=== PATIENT | female | born 1960 | race Caucasian/White ===

== ENCOUNTER 2017-10-16 14:48 | Observation (INO) | payer SELFPAY ==
[~2017-10-16] VITALS: Ht 149.9 cm; Wt 50.0 kg
[~2017-10-16 14:48] MED LIST: CEPH250S PO
[2017-10-16 14:50] VITALS: BP 152/70; PULSE 92; RESP 16; TEMP 98.4; O2SAT 98
--- NOTE | 2017-10-16 15:36 | PD ---
HPI Chief Complaint: Chest Pain Time Seen by Provider: 15:18 Travel History International Travel<30 days: No Contact w/Intl Traveler<30days: No Traveled to known affect area: No History of Present Illness HPI 57-year-old female presents to the emergency Department with complaint of chest pain and abdominal pain for the past few days. Chest pain has been intermittent. Area of the chest is generalized. Reports associated shortness of breath. Denies wheezing. Reports thinking that it may be associated with a "viral illness" because of some nasal congestion and intermittent cough. Says she feels exhausted. Reports subjective fevers. Denies vomiting. Reports loose bowel movement this morning. Describes chest pain as burning, heavy pressure. Reports feeling gassy with burps. Says she "just has to burp constantly." Reports pain 5/10. No known aggravating factors. Took 2 aspirin while in the ER waiting room and says her chest pain got better for a few minutes. Denies tobacco use. Denies EtOH. Denies illicit drug use. Reports family history of PA with her mother age of 70. Primary care provider is Dr. Andrade. Denies significant past medical history. Allergies to Tavist and iodine. Has no other medical complaints. No other modifying factors or associated signs and symptoms. PFSH Past Medical History Arthritis: No Asthma: No Autoimmune Disease: No Blood Disorders: No Anxiety: No Depression: No Heart Rhythm Problems: No Cancer: No Cardiac Catheterization: No Cardiovascular Problems: No High Cholesterol: No Chemotherapy: No Chest Pain: No Congestive Heart Failure: No COPD: No Cerebrovascular Accident: No Diabetes: No Diminished Hearing: Yes (TINNITUS) Endocrine: No Gastrointestinal Disorders: Yes GERD: No Glaucoma: No Genitourinary: No Headaches: No Hepatitis: No Hiatal Hernia: No Hypertension: No Kidney Stones: No Musculoskeletal: No Neurologic: No Psychiatric: No Respiratory: No Myocardial Infarction: No Radiation Therapy: No Renal Failure: No Seizures: No Sickle Cell Disease: No Sleep Apnea: No Ulcer: No : 3 Para: 2 : 1 Past Surgical History Abdominal Surgery: No AICD: No Cardiac Surgery: No Coronary Artery Bypass Graft: No Ear Surgery: Yes Endocrine Surgery: No Eye Surgery: No Genitourinary Surgery: No Gynecologic Surgery: Yes (HYSTERECTOMY) Hysterectomy: Yes Oral Surgery: Yes Pacemaker: No Thoracic Surgery: No Tonsillectomy: Yes Tympanostomy Tube: Yes Other Surgery: Yes (SURESH EAR DRUM REPLACEMENTS) Family History Family Myocardial Infarction: Yes (MOTHER AT AGE 70) Social History Alcohol Use: No Tobacco Use: No Substance Use: No Allergies-Medications (Allergen,Severity, Reaction): Coded Allergies: clemastine (Unverified Allergy, Severe, 10/16/17) diatrizoate meglumine (Unverified Allergy, Severe, 10/16/17) gadobenic acid (Unverified Allergy, Severe, 10/16/17) gadodiamide (Unverified Allergy, Severe, 10/16/17) gadoteridol (Unverified Allergy, Severe, 10/16/17) iodine (Unverified Allergy, Severe, 10/16/17) iodixanol (Unverified Allergy, Severe, 10/16/17) iohexol (Unverified Allergy, Severe, 10/16/17) potassium iodide (Unverified Allergy, Severe, 10/16/17) povidone-iodine (Unverified Allergy, Severe, 10/16/17) sodium iodide (Unverified Allergy, Severe, 10/16/17) sodium iodide (Unverified Allergy, Severe, 10/16/17) MRI PRECAUTION (Unverified Adverse Reaction, Unknown, pt needs info on ear surgery before scan micheline sug ct 04/13, 10/16/17) Reported Meds & Prescriptions Reported Meds & Active Scripts Active No Active Prescriptions or Reported Medications Review of Systems Except as stated in HPI: all other systems reviewed are Neg Physical Exam Narrative GENERAL: Well-nourished, well-developed female patient, in no acute distress; afebrile; nontoxic appearing SKIN: Warm and dry. HEAD: Atraumatic. Normocephalic. EYES: Pupils equal and round. No scleral icterus. No injection or drainage. ENT: Mucosa pink and moist. Airway patent. NECK: Trachea midline. CHEST: Reproducible chest wall tenderness on palpation over the sternum and bilateral breast areas. CARDIOVASCULAR: Regular rate and rhythm. No murmur appreciated. RESPIRATORY: No accessory muscle use. Clear to auscultation. Breath sounds equal bilaterally. GASTROINTESTINAL: Abdomen soft, generalized abdominal tenderness on palpation; I cannot specify where abdominal pain on exam seems to be over exaggerated, nondistended. Hepatic and splenic margins not palpable. Bowel sounds are hyperactive 4 quadrants. Nonrigid. No guarding. BACK: No CVA tenderness. MUSCULOSKELETAL: No obvious deformities. No clubbing. No cyanosis. No edema. NEUROLOGICAL: Awake and alert. Oriented 3. No obvious cranial nerve deficits. Motor grossly within normal limits. Normal speech. PSYCHIATRIC: Appropriate mood and affect; insight and judgment normal. Data Data Last Documented VS Vital Signs Date Time Temp Pulse Resp B/P (MAP) Pulse Ox O2 Delivery O2 Flow Rate FiO2 10/16/17 17:23 100 Room Air 10/16/17 17:23 (97) 10/16/17 14:50 98.4 92 16 Orders Orders Electrocardiogram (10/16/17 15:36) Ckmb (Isoenzyme) Profile (10/16/17 15:36) Complete Blood Count With Diff (10/16/17 15:36) Comprehensive Metabolic Panel (10/16/17 15:36) Magnesium (Mg) (10/16/17 15:36) Prothrombin Time / Inr (Pt) (10/16/17 15:36) Act Partial Throm Time (Ptt) (10/16/17 15:36) Troponin I (10/16/17 15:36) Chest, Single Ap (10/16/17 15:36) Ecg Monitoring (10/16/17 15:36) Iv Access Insert/Monitor (10/16/17 15:36) Oximetry (10/16/17 15:36) Oxygen Administration (10/16/17 15:36) Sodium Chloride 0.9% Flush (Ns Flush) (10/16/17 15:45) Lipase (10/16/17 15:36) Urinalysis - C+S If Indicated (10/16/17 15:36) Oral Contrast - Adult (10/16/17 15:48) Ct Abd/Pel W/O Iv Contrast (10/16/17 15:52) Influenzae A/B Antigen (10/16/17 16:07) CKMB (10/16/17 15:30) CKMB% (10/16/17 15:30) Diatrizoate Liq ( Gastroview Liq) (10/16/17 16:59) Activity Bed Rest With Brp (10/16/17 17:42) Vital Signs (Adult) Q4H (10/16/17 17:42) Cardiac Rhythm .As Directed (10/16/17 17:42) Notify Dr: Other .PRN (10/16/17 17:42) Notify Parameters (10/16/17 17:42) Resp Oxygen Nasal Cannula (10/16/17 ) Diet Heart Healthy (10/16/17 Dinner) Electrocardiogram (10/16/17 17:42) ^ Obtain (10/16/17 17:42) [employer] Custodian / Telemetry CAIO.Q8H (10/16/17 17:42) Admit Order (Ed Use Only) (10/16/17 17:42) Labs Laboratory Tests Test 10/16/17 15:30 10/16/17 16:00 White Blood Count 8.0 TH/MM3 Red Blood Count 4.26 MIL/MM3 Hemoglobin 13.1 GM/DL Hematocrit 37.9 % Mean Corpuscular Volume 88.9 FL Mean Corpuscular Hemoglobin 30.7 PG Mean Corpuscular Hemoglobin Concent 34.6 % Red Cell Distribution Width 12.8 % Platelet Count 287 TH/MM3 Mean Platelet Volume 9.9 FL Neutrophils (%) (Auto) 66.2 % Lymphocytes (%) (Auto) 25.1 % Monocytes (%) (Auto) 7.0 % Eosinophils (%) (Auto) 0.8 % Basophils (%) (Auto) 0.9 % Neutrophils # (Auto) 5.3 TH/MM3 Lymphocytes # (Auto) 2.0 TH/MM3 Monocytes # (Auto) 0.6 TH/MM3 Eosinophils # (Auto) 0.1 TH/MM3 Basophils # (Auto) 0.1 TH/MM3 CBC Comment DIFF FINAL Differential Comment Prothrombin Time 10.7 SEC Prothromb Time International Ratio 1.0 RATIO Activated Partial Thromboplast Time 27.1 SEC Blood Urea Nitrogen 12 MG/DL Creatinine 0.64 MG/DL Random Glucose 95 MG/DL Total Protein 8.5 GM/DL Albumin 4.2 GM/DL Calcium Level 9.5 MG/DL Magnesium Level 2.2 MG/DL Alkaline Phosphatase 89 U/L Aspartate Amino Transf (AST/SGOT) 21 U/L Alanine Aminotransferase (ALT/SGPT) 33 U/L Total Bilirubin 0.3 MG/DL Sodium Level 137 MEQ/L Potassium Level 3.8 MEQ/L Chloride Level 102 MEQ/L Carbon Dioxide Level 29.2 MEQ/L Anion Gap 6 MEQ/L Estimat Glomerular Filtration Rate 95 ML/MIN Total Creatine Kinase 119 U/L Creatine Kinase MB 1.3 NG/ML Troponin I LESS THAN 0.02 NG/ML Lipase 174 U/L Urine Color LIGHT-YELLOW Urine Turbidity CLEAR Urine pH 6.5 Urine Specific [place] 1.007 Urine Protein NEG mg/dL Urine Glucose (UA) NEG mg/dL Urine Ketones NEG mg/dL Urine Occult Blood NEG Urine Nitrite NEG Urine Bilirubin NEG Urine Urobilinogen LESS THAN 2.0 MG/DL Urine Leukocyte Esterase NEG Urine WBC LESS THAN 1 /hpf Urine Squamous Epithelial Cells 1 /hpf Urine Bacteria RARE /hpf Microscopic Urinalysis Comment CULT NOT INDICATED MDM Medical Decision Making Medical Screen Exam Complete: Yes Emergency Medical Condition: Yes Medical Record Reviewed: Yes Differential Diagnosis GERD, gastritis, PUD, PA, ACS, pneumonia, influenza Narrative Course 57-year-old female with chest pain and generalized abdominal pain. 1737: CBC unremarkable. Coags unremarkable. CMP unremarkable. Troponin less than 0.02. CK-MB 1.3. Lipase 174. Urinalysis without signs of infection. Chest x-ray and CT abdomen/pelvis concludes: Abdomen/Pelvis CT 10/16/17 1552 Signed Impressions: Service Date/Time: Monday, October 16, 2017 16:07 - CONCLUSION: 1. No acute abnormality to explain the patient's pain. Caesar De Leon Jr., MD Chest X-Ray 10/16/17 1536 Signed Impressions: Service Date/Time: Monday, October 16, 2017 16:44 - CONCLUSION: Normal examination. Matthew Harman MD Lab and radiology findings discussed with the patient. Discussed the patient with Dr. Hanley and he agrees with admission to the chest pain center. Patient will be admitted to [facility] for further treatment and evaluation. Physician Communication Physician Communication [facility] Diagnosis Primary Impression: Chest pain Qualified Codes: R07.9 - Chest pain, unspecified Additional Impression: Abdominal pain Qualified Codes: R10.9 - Unspecified abdominal pain Admitting Information Admitting Physician Requests: Observation Scripts No Active Prescriptions or Reported Meds Kiki Mcduffie Oct 16, 2017 15:35
[2017-10-16] MEDS ORDERED: SODIUM CHLORIDE 0.9% FLUSH 10 ML FLUSH IVF PRN (15:45)
[2017-10-16 16:18] LABS: AUTOMATED NEUTROPHIL # 5.3 TH/MM3 (1.8-7.7); BASOPHIL # 0.1 TH/MM3 (0-0.2); BASOPHIL % 0.9 % (0.0-2.0); EOSINOPHIL # 0.1 TH/MM3 (0-0.4); EOSINOPHIL % 0.8 % (0.0-4.0); HEMATOCRIT 37.9 % (35.0-46.0); HEMO FLAGS DIFF FINAL; LYMPH % 25.1 % (9.0-44.0); MEAN CELL VOLUME 88.9 FL (80.0-100.0); MEAN CORPUSCULAR HEMOGLOBIN 30.7 PG (27.0-34.0); MEAN CORPUSCULAR HGB CONC 34.6 % (32.0-36.0); NEUT % 66.2 % (16.0-70.0); PLATELET COUNT 287 TH/MM3 (150-450); RED BLOOD COUNT 4.26 MIL/MM3 (4.00-5.30); RED CELL DISTRIBUTION WIDTH 12.8 % (11.6-17.2)
--- NOTE | 2017-10-16 16:19 | RADRPT ---
EXAM DATE/TIME: 10/16/2017 16:07 [facility] COMPARISON: No previous studies available for comparison. INDICATIONS : Abdomen pain. ORAL CONTRAST: No oral contrast ingested. RADIATION DOSE: 4.54 CTDIvol (mGy) MEDICAL HISTORY : None SURGICAL HISTORY : Hysterectomy. ENCOUNTER: Initial ACUITY: 1 day PAIN SCALE: 5/10 LOCATION: Bilateral abdomen. TECHNIQUE: Volumetric scanning of the abdomen and pelvis was performed. Using automated exposure control and ad justment of the mA and/or kV according to patient size, radiation dose was kept as low as reasonably achievable to obtain optimal diagnostic quality images. DICOM format image data is available electro nically for review and comparison. FINDINGS: LOWER LUNGS: The visualized lower lungs are clear. LIVER: Homogeneous density without lesion. There is no dilation of the biliary tree. No calcified gallston es. SPLEEN: Normal size without lesion. PANCREAS: Within normal limits. KIDNEYS: Normal in size and shape. There is no mass, stone, or hydronephrosis. ADRENAL GLANDS: Within normal limits. VASCULAR: There is no aortic aneurysm. BOWEL/MESENTERY: The stomach, small bowel, and colon demonstrate no acute abnormality. There is no free intraperitone al air or fluid. ABDOMINAL WALL: Within normal limits. RETROPERITONEUM: There is no lymphadenopathy. BLADDER: No wall thickening or mass. REPRODUCTIVE: Within normal limits. INGUINAL: There is no lymphadenopathy or hernia. MUSCULOSKELETAL: Within normal limits for patient age. CONCLUSION: 1. No acute abnormality to explain the patient's pain. Caesar De Leon Jr., MD on October 16, 2017 at 16:12 Board Certified Radiologist. This report was verified electronically.
[2017-10-16 16:23] LABS: BACTERIA, URINE RARE /hpf; BLOOD, URINE NEG (NEG); COMMENT (UR) CULT NOT INDICATED; CULTURE IF INDICATED CULT NOT INDICATED; GLUCOSE,URINE NEG (NEG); KETONE, URINE NEG (NEG); NITRITE,URINE NEG (NEG); PH, URINE 6.5 (5.0-8.5); SQUAMOUS EPITHELIAL CELL URINE 1 /hpf (0-5); URINE COLOR LIGHT-YELLOW (YELLW/STRAW)
[2017-10-16 16:31] LABS: APTT (PATIENT) 27.1 SEC (24.3-30.1); PROTHROMBIN TIME - PATIENT 10.7 SEC (9.8-11.6)
[2017-10-16 16:48] LABS: ALT (GPT) 33 U/L (10-53); ANION GAP 6 MEQ/L (5-15); AST (GOT) 21 U/L (15-37); BICARBONATE 29.2 MEQ/L (21.0-32.0); BLOOD UREA NITROGEN 12 MG/DL (7-18); CHLORIDE 102 MEQ/L (98-107); GLOMERULAR FILTRATION RATE 95 ML/MIN (>89); MAGNESIUM 2.2 MG/DL (1.5-2.5); POTASSIUM 3.8 MEQ/L (3.5-5.1); SODIUM (NA) 137 MEQ/L (136-145)
[2017-10-16 16:52] LABS: ALKALINE PHOSPHATASE 89 U/L (45-117); CREATINE KINASE 119 U/L (26-192); TOTAL BILIRUBIN ADULT 0.3 MG/DL (0.2-1.0)
[2017-10-16] MEDS ORDERED: DIATRIZOATE MEGLUM/DIATRIZOATE SOD 9 ML CUP ONE (16:59)
[2017-10-16 17:04] LABS: CKMB 1.3 NG/ML (0.5-3.6)
--- NOTE | 2017-10-16 17:10 | RADRPT ---
EXAM DATE/TIME: 10/16/2017 16:44 [facility] COMPARISON: No previous studies available for comparison. INDICATIONS : Chest pain. MEDICAL HISTORY : None. SURGICAL HISTORY : Hysterectomy. ENCOUNTER: Initial ACUITY: 1 day PAIN SCORE: 6/10 LOCATION: Left upper chest FINDINGS: A single view of the chest demonstrates the lungs to be symmetrically aerated without evidence of mas s, infiltrate or effusion. The cardiomediastinal contours are unremarkable. Osseous structures are intact. CONCLUSION: Normal examination. Matthew Harman MD on October 16, 2017 at 17:08 Board Certified Radiologist. This report was verified electronically.
[2017-10-16] MEDS ORDERED: ONDANSETRON HCL 4 MG/2 ML VIAL IV PUSH PRN (18:30)
[2017-10-16] MEDS ORDERED: NITROGLYCERIN 0.4 MG SL 25 TABS/BTL SL PRN (18:30)
[2017-10-16] MEDS ORDERED: SODIUM CHLORIDE 0.9% FLUSH 10 ML FLUSH IV FLUSH PRN (18:30)
[2017-10-16] MEDS ORDERED: ACETAMINOPHEN 500 MG CPLT PO PRN (18:30)
--- NOTE | 2017-10-16 18:31 | HHI.HP ---
HPI Primary Care Physician Luc Lundberg MD Chief Complaint Chest pain History of Present Illness 57-year-old female with no significant past medical history presents to emergency room for further evaluation of chest pain and abdominal pain. Patient vague regarding symptoms and difficult to obtain accuracy of symptoms. Reports onset of chest pain began may be Thursday or Thursday, or "maybe even last week." Location generalized chest area pointing to left right and substernal areas. Characterized as heavy, tight, and burning. Unable to discern if pain comes on quickly or gradual. Occasionally radiates to mid back. Unsure of duration of symptoms. Denies similar pain in the past. No known precipitating or relieving factors. Denies any recent illness. Endorses a "slight cough and nasal congestion." Endorses she was mother and the ER today. Mother has been admitted for pneumonia. After mother was admitted, she then came to the ER herself. In regards to her abdominal discomfort, endorses frequent belching and passing flatus. This is not a new problem, states her PCP has worked up for belching and abdominal distension however cause unknown. Review of Systems General: No fatigue,weakness, fever, chills, or recent illness. Has been her general state of health other than his stated above. HEENT: Current nasal congestion, no nasal drainage, no dysphasia CV: Continues to have chest pain as stated above. RESP: No SOB. "Slight cough" reportedly been nonproductive. No wheeze. GI: No nausea, vomiting, or bowel changes. Frequent belching and passing gas. No change in appetite, no unintentional weight gain or weight loss : No dysuria EXT: Recent trace lower extremity edema MS: No discomfort or change in ROM NEURO: No difficulty with balance, LOC, motor/sensory deficits PSYCH: No anxiety, depression, or situational stress. Denies situational stress regarding mother's recent hospitalization. SKIN: No rashes, no concerning lesions Past Family Social History Allergies: Coded Allergies: clemastine (Unverified Allergy, Severe, 10/16/17) diatrizoate meglumine (Unverified Allergy, Severe, 10/16/17) gadobenic acid (Unverified Allergy, Severe, 10/16/17) gadodiamide (Unverified Allergy, Severe, 10/16/17) gadoteridol (Unverified Allergy, Severe, 10/16/17) iodine (Unverified Allergy, Severe, 10/16/17) iodixanol (Unverified Allergy, Severe, 10/16/17) iohexol (Unverified Allergy, Severe, 10/16/17) potassium iodide (Unverified Allergy, Severe, 10/16/17) povidone-iodine (Unverified Allergy, Severe, 10/16/17) sodium iodide (Unverified Allergy, Severe, 10/16/17) sodium iodide (Unverified Allergy, Severe, 10/16/17) MRI PRECAUTION (Unverified Adverse Reaction, Unknown, pt needs info on ear surgery before scan shifrn sug ct 04/13, 10/16/17) Past Medical History Hypothyroidism Reported Medications Reported Meds & Active Scripts Active No Active Prescriptions or Reported Medications States she was prescribed levothyroxine few months ago never started. Stating she does not like to take medication. Active Ordered Medications Current Medications Medications (Trade) Dose Ordered Sig/Eli Route Start Time Stop Time Status Last Admin (NS Flush) 2 ml UNSCH PRN IVF 10/16/17 15:45 Family History Noncontributory for early onset cardiovascular disease. Social History No known diabetes, hypertension, coronary artery disease, or lipidemia. Number smoker, quit in her early 20s. Denies any alcohol or illegal drug use. . Endorses an active lifestyle. Past cardiac testing Cardiac catheterization 5 years ago performed by Dr. Alfred reported to being "lately normal." No recent stress testing. Physical Exam Vital Signs Vital Signs Date Time Temp Pulse Resp B/P (MAP) Pulse Ox O2 Delivery O2 Flow Rate FiO2 10/16/17 17:23 100 Room Air 10/16/17 17:23 (97) Room Air 10/16/17 14:50 98.4 92 16 152/70 (97) 98 Physical Exam GENERAL: Alert WN, WD, NAD, anxious, female HEAD: NC, AT EYES: Sclera clear, conjunctiva without injection, pupils equal and round ENT: Mucous membranes pink and moist CV: RRR, without murmur, rub, gallop, no JVD, S1-S2 no S3-S4. Generalized Chest wall pain easily reproduced with palpation. RESP: Clear lungs throughout bilateral, no crackles, wheeze, rhonchi, symmetrical chest rise, nonlabored, able to speak in full sentences ABD: Soft, NT, ND, no masses, positive bowel tones BACK: No CVAT. Midback pain reproduced palpation. EXT: Pulses +24, trace lower extremity dependent edema MS: Normal tone 4 extremities, no obvious deformities, full range of motion NEURO: CN II through CN XII grossly intact, motor strength 5/5 PSYCH: A+O 3, anxious,appropriate speech, questionable insight and judgment SKIN: Normal turgor, normal texture, no lesions, no rashes Laboratory Laboratory Tests Test 10/16/17 15:30 10/16/17 16:00 White Blood Count 8.0 Red Blood Count 4.26 Hemoglobin 13.1 Hematocrit 37.9 Mean Corpuscular Volume 88.9 Mean Corpuscular Hemoglobin 30.7 Mean Corpuscular Hemoglobin Concent 34.6 Red Cell Distribution Width 12.8 Platelet Count 287 Mean Platelet Volume 9.9 Neutrophils (%) (Auto) 66.2 Lymphocytes (%) (Auto) 25.1 Monocytes (%) (Auto) 7.0 Eosinophils (%) (Auto) 0.8 Basophils (%) (Auto) 0.9 Neutrophils # (Auto) 5.3 Lymphocytes # (Auto) 2.0 Monocytes # (Auto) 0.6 Eosinophils # (Auto) 0.1 Basophils # (Auto) 0.1 CBC Comment DIFF FINAL Differential Comment Prothrombin Time 10.7 Prothromb Time International Ratio 1.0 Activated Partial Thromboplast Time 27.1 Blood Urea Nitrogen 12 Creatinine 0.64 Random Glucose 95 Total Protein 8.5 Albumin 4.2 Calcium Level 9.5 Magnesium Level 2.2 Alkaline Phosphatase 89 Aspartate Amino Transf (AST/SGOT) 21 Alanine Aminotransferase (ALT/SGPT) 33 Total Bilirubin 0.3 Sodium Level 137 Potassium Level 3.8 Chloride Level 102 Carbon Dioxide Level 29.2 Anion Gap 6 Estimat Glomerular Filtration Rate 95 Total Creatine Kinase 119 Creatine Kinase MB 1.3 Troponin I LESS THAN 0.02 Lipase 174 Urine Color LIGHT-YELLOW Urine Turbidity CLEAR Urine pH 6.5 Urine Specific [place] 1.007 Urine Protein NEG Urine Glucose (UA) NEG Urine Ketones NEG Urine Occult Blood NEG Urine Nitrite NEG Urine Bilirubin NEG Urine Urobilinogen LESS THAN 2.0 Urine Leukocyte Esterase NEG Urine WBC LESS THAN 1 Urine Squamous Epithelial Cells 1 Urine Bacteria RARE Microscopic Urinalysis Comment CULT NOT INDICATED Result Diagram: 10/16/17 1530 10/16/17 1530 Imaging Last Impressions Abdomen/Pelvis CT 10/16/17 1552 Signed Impressions: Service Date/Time: Monday, October 16, 2017 16:07 - CONCLUSION: 1. No acute abnormality to explain the patient's pain. Caesar De Leon Jr., MD Chest X-Ray 10/16/17 1536 Signed Impressions: Service Date/Time: Monday, October 16, 2017 16:44 - CONCLUSION: Normal examination. Matthew Harman MD Course EKG Sinus rhythm, normal axis and no ST or T-segment changes Caprini VTE Risk Assessment Caprini VTE Risk Assessment: No/Low Risk (score <= 1) Caprini Risk Assessment Model Point Value = 1 Point Value = 2 Point Value = 3 Point Value = 5 Age 41-60 Minor surgery BMI > 25 kg/m2 Swollen legs Varicose veins or History of unexplained or recurrent spontaneous Oral contraceptives or hormone replacement Sepsis (< 1 month) Serious lung disease, including pneumonia (< 1 month) Abnormal pulmonary function Acute myocardial infarction Congestive heart failure (< 1 month) History of inflammatory bowel disease Medical patient at bed rest Age 61-74 Arthroscopic surgery Major open surgery (> 45 min) Laparoscopic surgery (> 45 min) Malignancy Confined to bed (> 72 hours) Immobilizing plaster cast Central venous access Age >= 75 History of VTE Family history of VTE Factor V Leiden Prothrombin [id number] Lupus anticoagulant Anticardiolipin antibodies Elevated serum homocysteine Heparin-induced thrombocytopenia Other congenital or acquired thrombophilia Stroke (< 1 month) Elective arthroplasty Hip, pelvis, or leg fracture Acute spinal cord injury (< 1 month) Prophylaxis Regimen Total Risk Factor Score Risk Level Prophylaxis Regimen 0-1 Low Early ambulation 2 Moderate Order ONE of the following: *Sequential Compression Device (SCD) *Heparin 5000 units SQ BID 3-4 Higher Order ONE of the following medications: *Heparin 5000 units SQ TID *Enoxaparin/Lovenox 40 mg SQ daily (WT < 150 kg, CrCl > 30 mL/min) *Enoxaparin/Lovenox 30 mg SQ daily (WT < 150 kg, CrCl > 10-29 mL/min) *Enoxaparin/Lovenox 30 mg SQ BID (WT < 150 kg, CrCl > 30 mL/min) AND/OR *Sequential Compression Device (SCD) 5 or more Highest Order ONE of the following medications: *Heparin 5000 units SQ TID (Preferred with Epidurals) *Enoxaparin/Lovenox 40 mg SQ daily (WT < 150 kg, CrCl > 30 mL/min) *Enoxaparin/Lovenox 30 mg SQ daily (WT < 150 kg, CrCl > 10-29 mL/min) *Enoxaparin/Lovenox 30 mg SQ BID (WT < 150 kg, CrCl > 30 mL/min) AND *Sequential Compression Device (SCD) Assessment and Plan Assessment and Plan #1 Atypical chest pain-admitted chest pain center. Ruled out with 3 sets of EKGs, cardiac enzymes, monitor overnight. Will be evaluated by Ricco Stoll in a.m. Discussed likelihood possible stress test however due to normal cardiac catheterization 5 years ago stress test may not be indicated. This will be determined by real estate utilization officer. Both patient and agreeable to plan of care. #2 Musculoskeletal pain-Toradol 30 mg IV 1 dose #3 Abdominal discomfort-no acute findings on exam or imaging. Reassurance given. Protonix 40 mg QD. Follow-up with PCP upon discharge. Griselda Virgen Oct 16, 2017 18:31
[2017-10-16] MEDS ORDERED: CALCIUM CARBONATE 500 MG CHEWABLE TAB CHEW PRN (18:45)
[2017-10-16] MEDS ORDERED: KETOROLAC TROMETHAMINE 30 MG/ML (IVP) VIAL IV PUSH ONE (19:15)
[2017-10-16 19:24] LABS: CREATINE KINASE 108 U/L (26-192)
[2017-10-16 19:35] VITALS: O2SAT 96
[2017-10-16 19:59] VITALS: BP 126/69; PULSE 87; RESP 18; TEMP 97.8; O2SAT 98
[2017-10-16] MEDS: SODIUM CHLORIDE 0.9% FLUSH 10 ML FLUSH IV FLUSH SCH (20:14)
[2017-10-16] MEDS: PANTOPRAZOLE SOD 40 MG DELAYED RELEASE TAB PO SCH (20:14)
[2017-10-16 23:35] VITALS: BP 104/58; PULSE 72; RESP 18; TEMP 98; O2SAT 97
[2017-10-16 23:45] LABS: CREATINE KINASE 96 U/L (26-192)
[2017-10-17 05:04] VITALS: BP 101/57; PULSE 61; RESP 18; TEMP 98.4; O2SAT 97
[2017-10-17 07:14] VITALS: BP 99/57; PULSE 66; RESP 18; TEMP 95.8; O2SAT 97
[2017-10-17] MEDS ORDERED: ASPIRIN 325 MG TAB PO SCH (09:00)
[2017-10-17] MEDS: SODIUM CHLORIDE 0.9% FLUSH 10 ML FLUSH IV FLUSH SCH (09:00)
--- NOTE | 2017-10-17 09:42 | HHI.DCPOC ---
Discharge Care Plan Diagnosis: (1) Chest pain (2) Abdominal pain Goals to Promote Your Health * To prevent worsening of your condition and complications * To maintain your health at the optimal level Directions to Meet Your Goals Take your medications as prescribed Follow your dietary instruction Follow activity as directed Keep your appointments as scheduled Take your immunizations and boosters as scheduled If your symptoms worsen call your PCP, if no PCP go to Urgent Care Center or Emergency Room Smoking is Dangerous to Your Health. Avoid second hand smoke Call the 24-hour hour crisis hotline for domestic abuse at [facility] Oct 17, 2017 09:41
--- NOTE | 2017-10-17 09:49 | PD.CARD.PN ---
Subjective Subjective Remarks Pt seen and evaluated with PA. She has ongoing outpatient evaluation for abdominal issues and pain with Dr. Cha. Yesterday this seemed to precipitate the discomfort in her chest which lasted off an on for several hours. She has RO for ACS now and options for ETT or MIKO are considered. Her resting EKG is abn so ETT less appropriate. In the past she had a nuclear stress and a very bad reaction to it. She had a negative CAT"H in 2011 and no acute markers to suggest acute problem now. She strongly declined a nuclear evaluation and does have good OP follow up locally. As a result we will respect her request and discharge her to further OP evaluation by Dr. Cha. Objective Medications Current Medications Medications (Trade) Dose Ordered Sig/Eli Route Start Time Stop Time Status Last Admin (NS Flush) 2 ml UNSCH PRN IVF 10/16/17 15:45 (NS Flush) 2 ml UNSCH PRN IV FLUSH 10/16/17 18:30 (NS Flush) 2 ml BID IV FLUSH 10/16/17 21:00 10/16/17 20:14 (Tylenol) 500 mg Q4H PRN PO 10/16/17 18:30 (Zofran Inj) 4 mg Q6H PRN IV PUSH 10/16/17 18:30 (Nitrostat Sl) 0.4 mg Q5M PRN SL 10/16/17 18:30 (Aspirin) 325 mg DAILY PO 10/17/17 09:00 (Protonix) 40 mg DAILY PO 10/16/17 18:45 10/16/17 20:14 (Tums Chew) 500 mg Q2H PRN CHEW 10/16/17 18:45 Vital Signs / I&O Vital Signs Date Time Temp Pulse Resp B/P (MAP) Pulse Ox O2 Delivery O2 Flow Rate FiO2 10/17/17 07:14 95.8 66 18 99/57 (71) 97 10/17/17 05:04 98.4 61 18 101/57 (72) 97 10/16/17 23:35 98.0 72 18 104/58 (73) 97 10/16/17 19:59 97.8 87 18 126/69 (88) 98 10/16/17 19:35 96 10/16/17 19:04 10/16/17 17:23 100 Room Air 10/16/17 17:23 (97) Room Air 10/16/17 14:50 98.4 92 16 152/70 (97) 98 Physical Exam WNWD in no acute distress Neck without JVD, MN or bruit Chest clear with good BS CV RSR without GRM Abd diffusely tender, hyperactive BS, but no guarding or rebound. No masses Ext without CCE Laboratory Laboratory Tests Test 10/16/17 15:30 10/16/17 16:00 10/16/17 18:50 10/16/17 23:00 White Blood Count 8.0 TH/MM3 Red Blood Count 4.26 MIL/MM3 Hemoglobin 13.1 GM/DL Hematocrit 37.9 % Mean Corpuscular Volume 88.9 FL Mean Corpuscular Hemoglobin 30.7 PG Mean Corpuscular Hemoglobin Concent 34.6 % Red Cell Distribution Width 12.8 % Platelet Count 287 TH/MM3 Mean Platelet Volume 9.9 FL Neutrophils (%) (Auto) 66.2 % Lymphocytes (%) (Auto) 25.1 % Monocytes (%) (Auto) 7.0 % Eosinophils (%) (Auto) 0.8 % Basophils (%) (Auto) 0.9 % Neutrophils # (Auto) 5.3 TH/MM3 Lymphocytes # (Auto) 2.0 TH/MM3 Monocytes # (Auto) 0.6 TH/MM3 Eosinophils # (Auto) 0.1 TH/MM3 Basophils # (Auto) 0.1 TH/MM3 CBC Comment DIFF FINAL Differential Comment Prothrombin Time 10.7 SEC Prothromb Time International Ratio 1.0 RATIO Activated Partial Thromboplast Time 27.1 SEC Blood Urea Nitrogen 12 MG/DL Creatinine 0.64 MG/DL Random Glucose 95 MG/DL Total Protein 8.5 GM/DL Albumin 4.2 GM/DL Calcium Level 9.5 MG/DL Magnesium Level 2.2 MG/DL Alkaline Phosphatase 89 U/L Aspartate Amino Transf (AST/SGOT) 21 U/L Alanine Aminotransferase (ALT/SGPT) 33 U/L Total Bilirubin 0.3 MG/DL Sodium Level 137 MEQ/L Potassium Level 3.8 MEQ/L Chloride Level 102 MEQ/L Carbon Dioxide Level 29.2 MEQ/L Anion Gap 6 MEQ/L Estimat Glomerular Filtration Rate 95 ML/MIN Total Creatine Kinase 119 U/L 108 U/L 96 U/L Creatine Kinase MB 1.3 NG/ML 1.0 NG/ML Troponin I LESS THAN 0.02 NG/ML LESS THAN 0.02 NG/ML LESS THAN 0.02 NG/ML Lipase 174 U/L Urine Color LIGHT-YELLOW Urine Turbidity CLEAR Urine pH 6.5 Urine Specific [place] 1.007 Urine Protein NEG mg/dL Urine Glucose (UA) NEG mg/dL Urine Ketones NEG mg/dL Urine Occult Blood NEG Urine Nitrite NEG Urine Bilirubin NEG Urine Urobilinogen LESS THAN 2.0 MG/DL Urine Leukocyte Esterase NEG Urine WBC LESS THAN 1 /hpf Urine Squamous Epithelial Cells 1 /hpf Urine Bacteria RARE /hpf Microscopic Urinalysis Comment CULT NOT INDICATED Imaging Last 24 hours Impressions Abdomen/Pelvis CT 10/16/17 1552 Signed Impressions: Service Date/Time: Monday, October 16, 2017 16:07 - CONCLUSION: 1. No acute abnormality to explain the patient's pain. Caesar De Leon Jr., MD Chest X-Ray 10/16/17 1536 Signed Impressions: Service Date/Time: Monday, October 16, 2017 16:44 - CONCLUSION: Normal examination. Matthew Harman MD Assessment and Plan Assessment and Plan She has RO for ACS and declines nuclear stress testing. In view of her negative CATH, current atypical symptoms, and negative enzymes she is at relatively low risk to discharge and F"U as OP with her PCP who knows her well. Discussed Condition With This plan was discussed with the patient while PA present in the room. Ricco Stoll MD Oct 17, 2017 09:49
[2017-10-17] MEDS: PANTOPRAZOLE SOD 40 MG DELAYED RELEASE TAB PO SCH (09:52)
--- NOTE | 2017-10-17 14:36 | EKG ---
Date Performed: 10/16/2017 Time Performed: 22:30:13 PTAGE: 57 years EKG: Sinus rhythm ST DEVIATION AND MODERATE T-WAVE ABNORMALITY, CONSIDER LATERAL ISCHEMIA ABNORMAL ECG NO SIG CHANGE PREVIOUS TRACING : 10/16/2017 18.43 DOCTOR: Ricco Stoll Interpretating Date/Time 10/17/2017 14:35:17
--- NOTE | 2017-10-17 15:10 | EKG ---
Date Performed: 10/16/2017 Time Performed: 18:43:01 PTAGE: 57 years EKG: Sinus rhythm NONSPECIFIC ST & T-WAVE ABNORMALITY BORDERLINE ECG PREVIOUS TRACING : 10/16/2017 15.26 Compared to prior tracing no significant change DOCTOR: Tenzin Olivarez Interpretating Date/Time 10/20/2017 06:51:35
--- NOTE | 2017-10-17 15:26 | EKG ---
Date Performed: 10/16/2017 Time Performed: 15:26:07 PTAGE: 57 years EKG: Sinus rhythm POSSIBLE LEFT ATRIAL ENLARGEMENT LOW QRS VOLTAGE IN PRECORDIAL LEADS NONSPECIFIC ST & T-WAVE ABNORMA LITY BORDERLINE ECG PREVIOUS TRACING : 04/23/2012 10.55 Compared to prior tracing no significant change DOCTOR: Tenzin Olivarez Interpretating Date/Time 10/17/2017 15:25:41
== END 2017-10-17 10:35 | disposition home or self-care (01) ==
LOC: NEPE 14:48 → NEDA 17:46 → NEPGCP 19:04
PROVIDERS: ADMIT Internal Medicine Interventional Cardiology; ATTEND Internal Medicine Interventional Cardiology
DX: R07.9 Chest pain, unspecified (principal); R10.9 Unspecified abdominal pain; R06.02 Shortness of breath; R94.31 Abnormal electrocardiogram [ECG] [EKG]; E03.9 Hypothyroidism, unspecified; Z87.891 Personal history of nicotine dependence
CPT/HCPCS: 71010; 74176; 80053; 81001; 82550; 82552; 83690; 83735; 84484; 85025; 85610; 85730; 93005; 96374; 96376; 99285; G0378; J1885; Q9963

== ENCOUNTER 2018-01-05 11:45 | Emergency (ER) | payer SELFPAY ==
[2018-01-05 11:49] VITALS: BP 145/72; PULSE 90; RESP 18; TEMP 98.2; O2SAT 99
[2018-01-05 12:31] LABS: AUTOMATED NEUTROPHIL # 5.1 TH/MM3 (1.8-7.7); BASOPHIL # 0.1 TH/MM3 (0-0.2); BASOPHIL % 0.8 % (0.0-2.0); EOSINOPHIL # 0.1 TH/MM3 (0-0.4); EOSINOPHIL % 1.3 % (0.0-4.0); HEMATOCRIT 37.5 % (35.0-46.0); LYMPH % 24.3 % (9.0-44.0); LYMPHOCYTE # 1.8 TH/MM3 (1.0-4.8); MEAN CELL VOLUME 88.9 FL (80.0-100.0); MEAN CORPUSCULAR HEMOGLOBIN 30.7 PG (27.0-34.0); MEAN CORPUSCULAR HGB CONC 34.6 % (32.0-36.0); MEAN PLATELET VOLUME 9.5 FL (7.0-11.0); MONO % 6.6 % (0.0-8.0); MONOCYTE # 0.5 TH/MM3 (0-0.9); PLATELET COUNT 274 TH/MM3 (150-450); RED BLOOD COUNT 4.22 MIL/MM3 (4.00-5.30); RED CELL DISTRIBUTION WIDTH 12.6 % (11.6-17.2); WHITE BLOOD COUNT 7.6 TH/MM3 (4.0-11.0)
[2018-01-05 12:38] LABS: PROTHROMBIN TIME - PATIENT 10.6 SEC (9.8-11.6)
--- NOTE | 2018-01-05 12:54 | RADRPT ---
EXAM DATE/TIME: 01/05/2018 12:38 [facility] COMPARISON: No previous studies available for comparison. INDICATIONS : Stabbing chest pain today, fatigue, weakness MEDICAL HISTORY : chest pain off and on since Sep 2017 SURGICAL HISTORY : Hysterectomy. ENCOUNTER: Initial ACUITY: 1 day PAIN SCORE: 10/10 LOCATION: Bilateral chest FINDINGS: PA and lateral views of the chest demonstrate the lungs to be symmetrically aerated without evidence of mass, infiltrate or effusion. The cardiomediastinal contours are unremarkable. Osseous structure s are intact. CONCLUSION: No acute disease. Caesar De Leon Jr., MD on January 05, 2018 at 12:51 Board Certified Radiologist. This report was verified electronically.
[2018-01-05 13:12] LABS: BICARBONATE 28.8 MEQ/L (21.0-32.0); BLOOD UREA NITROGEN 12 MG/DL (7-18); CALCIUM 9.1 MG/DL (8.5-10.1); CHLORIDE 105 MEQ/L (98-107); CREATININE 0.64 MG/DL (0.50-1.00); GLOMERULAR FILTRATION RATE 95 ML/MIN (>89); GLUCOSE,RANDOM 94 MG/DL (74-106); MAGNESIUM 2.3 MG/DL (1.5-2.5); SODIUM (NA) 139 MEQ/L (136-145); TROPONIN I LESS THAN 0.02 NG/ML (0.02-0.05)
[2018-01-05 14:32] VITALS: BP 147/85; PULSE 74; RESP 17; O2SAT 99
--- NOTE | 2018-01-05 14:50 | PD ---
HPI Chief Complaint: Chest Pain Time Seen by Provider: 14:20 Travel History International Travel<30 days: No Contact w/Intl Traveler<30days: No Traveled to known affect area: No History of Present Illness HPI The patient was seen and examined in the presence of the nurse. At no point in time was I and the room without the nurse present. Complains of chest pain. She has had this exact same chest pain for 3 months. She stayed in the chest pain Center overnight in September 2017 but was discharged without stress testing as her pain was very atypical and she had a normal heart catheter in 2011. She seen her primary physician for this but does not have a diagnosis. She seems very anxious about it. Her pain is described as a sharp stabbing pain that lasts literally 2 or 3 seconds and resolves. It's in her left low chest. It's not pleuritic. No fever or cough. Symptoms severity is mild. No alleviating factors. No exacerbating factors. PFSH Past Medical History Arthritis: No Asthma: No Autoimmune Disease: No Blood Disorders: No Anxiety: No Depression: No Heart Rhythm Problems: No Cancer: No Cardiac Catheterization: Yes Cardiovascular Problems: Yes High Cholesterol: Yes Chemotherapy: No Chest Pain: No Congestive Heart Failure: No COPD: No Cerebrovascular Accident: No Diabetes: No Diminished Hearing: Yes (TINNITUS) Endocrine: No Gastrointestinal Disorders: Yes GERD: No Glaucoma: No Genitourinary: No Headaches: No Hepatitis: No Hiatal Hernia: No Heparin Induced Thrombocytopen: No Hypertension: No Kidney Stones: No Musculoskeletal: No Neurologic: No Psychiatric: No Reproductive: No Respiratory: No Myocardial Infarction: No Radiation Therapy: No Renal Failure: No Seizures: No Sickle Cell Disease: No Sleep Apnea: No Ulcer: No : 3 Para: 2 : 1 Past Surgical History Abdominal Surgery: No AICD: No Cardiac Surgery: No Coronary Artery Bypass Graft: No Ear Surgery: Yes Endocrine Surgery: No Eye Surgery: No Genitourinary Surgery: No Gynecologic Surgery: Yes (HYSTERECTOMY) Hysterectomy: Yes Insulin Pump: No Neurologic Surgery: No Oral Surgery: Yes Pacemaker: No Thoracic Surgery: No Tonsillectomy: Yes Tympanostomy Tube: Yes Other Surgery: Yes (SURESH EAR DRUM REPLACEMENTS) Family History Family Myocardial Infarction: Yes (MOTHER AT AGE 70) Social History Alcohol Use: No Tobacco Use: No Substance Use: No Allergies-Medications (Allergen,Severity, Reaction): Coded Allergies: clemastine (Unverified Allergy, Severe, 10/16/17) diatrizoate meglumine (Unverified Allergy, Severe, 10/16/17) gadobenic acid (Unverified Allergy, Severe, 10/16/17) gadodiamide (Unverified Allergy, Severe, 10/16/17) gadoteridol (Unverified Allergy, Severe, 10/16/17) iodine (Unverified Allergy, Severe, 10/16/17) iodixanol (Unverified Allergy, Severe, 10/16/17) iohexol (Unverified Allergy, Severe, 10/16/17) potassium iodide (Unverified Allergy, Severe, 10/16/17) povidone-iodine (Unverified Allergy, Severe, 10/16/17) sodium iodide (Unverified Allergy, Severe, 10/16/17) sodium iodide (Unverified Allergy, Severe, 10/16/17) MRI PRECAUTION (Unverified Adverse Reaction, Unknown, pt needs info on ear surgery before scan micheline sug ct 04/13, 10/16/17) Reported Meds & Prescriptions Reported Meds & Active Scripts Active No Active Prescriptions or Reported Medications Review of Systems General / Constitutional: No: Fever Eyes: No: Visual changes HENT: No: Headaches Cardiovascular: Positive: Chest Pain or Discomfort Respiratory: No: Shortness of Breath Gastrointestinal: No: Abdominal Pain Genitourinary: No: Dysuria Musculoskeletal: No: Pain Skin: No Rash Neurologic: No: Weakness Psychiatric: Positive: Anxiety, No: Depression Endocrine: No: Polydipsia Hematologic/Lymphatic: No: Easy Bruising Physical Exam Narrative GENERAL: Thin anxious well-developed patient in no apparent distress. SKIN: Focused skin assessment reveals no rash and nodules. Skin is Warm and dry. HEAD: Atraumatic. Normocephalic. EYES: Pupils equal and round. No scleral icterus. No injection or drainage. ENT: No nasal bleeding or discharge. Mucous membranes pink and moist. NECK: Trachea midline. No JVD. CARDIOVASCULAR: Regular rate and rhythm. No murmur appreciated. RESPIRATORY: No accessory muscle use. Clear to auscultation. Breath sounds equal bilaterally. GASTROINTESTINAL: Abdomen soft, non-tender, nondistended. Hepatic and splenic margins not palpable. MUSCULOSKELETAL: No obvious deformities. No clubbing. No cyanosis. No edema. Has a lot of sternal tenderness but says it's different than her chest pain complaint NEUROLOGICAL: Awake and alert. No obvious cranial nerve deficits. Motor grossly within normal limits. Normal speech. PSYCHIATRIC: Anxious mood and affect; insight and judgment normal. Data Data Last Documented VS Vital Signs Date Time Temp Pulse Resp B/P (MAP) Pulse Ox O2 Delivery O2 Flow Rate FiO2 01/05/18 14:32 74 17 147/85 (105) 99 Room Air 01/05/18 11:49 98.2 Orders Orders Electrocardiogram (01/05/18 11:52) Basic Metabolic Panel (Bmp) (01/05/18 11:52) Ckmb (Isoenzyme) Profile (01/05/18 11:52) Complete Blood Count With Diff (01/05/18 11:52) Magnesium (Mg) (01/05/18 11:52) Prothrombin Time / Inr (Pt) (01/05/18 11:52) Act Partial Throm Time (Ptt) (01/05/18 11:52) Troponin I (01/05/18 11:52) Chest, Pa & Lat (01/05/18 11:52) Labs Laboratory Tests Test 01/05/18 12:02 White Blood Count 7.6 TH/MM3 Red Blood Count 4.22 MIL/MM3 Hemoglobin 13.0 GM/DL Hematocrit 37.5 % Mean Corpuscular Volume 88.9 FL Mean Corpuscular Hemoglobin 30.7 PG Mean Corpuscular Hemoglobin Concent 34.6 % Red Cell Distribution Width 12.6 % Platelet Count 274 TH/MM3 Mean Platelet Volume 9.5 FL Neutrophils (%) (Auto) 67.0 % Lymphocytes (%) (Auto) 24.3 % Monocytes (%) (Auto) 6.6 % Eosinophils (%) (Auto) 1.3 % Basophils (%) (Auto) 0.8 % Neutrophils # (Auto) 5.1 TH/MM3 Lymphocytes # (Auto) 1.8 TH/MM3 Monocytes # (Auto) 0.5 TH/MM3 Eosinophils # (Auto) 0.1 TH/MM3 Basophils # (Auto) 0.1 TH/MM3 CBC Comment DIFF FINAL Differential Comment Prothrombin Time 10.6 SEC Prothromb Time International Ratio 1.0 RATIO Activated Partial Thromboplast Time 25.7 SEC Blood Urea Nitrogen 12 MG/DL Creatinine 0.64 MG/DL Random Glucose 94 MG/DL Calcium Level 9.1 MG/DL Magnesium Level 2.3 MG/DL Sodium Level 139 MEQ/L Potassium Level 3.7 MEQ/L Chloride Level 105 MEQ/L Carbon Dioxide Level 28.8 MEQ/L Anion Gap 5 MEQ/L Estimat Glomerular Filtration Rate 95 ML/MIN Total Creatine Kinase 62 U/L Troponin I LESS THAN 0.02 NG/ML MDM Medical Decision Making Medical Screen Exam Complete: Yes Emergency Medical Condition: Yes Medical Record Reviewed: Yes Differential Diagnosis Differential diagnosis includes DE, angina, pericarditis, pleurisy, GERD, anxiety. Narrative Course I have reviewed the patient's electronic medical record. Reviewed her chest pain center hospitalization from September 2017 Reviewed the entirety of her workup including x-ray and EKG and labs It's entirely normal I placed a call to the patient's primary physician who has evaluated her for this problem. That is Dr. Lundberg I would like to discuss with him Doesn't sound like she needs emergent hospitalization for stress testing. This is been dragging on for 3 months now and is a brief 2-3 second sharp stabbing pain that resolves promptly. This seems very noncardiac and very atypical. It didn't warrant stress testing 3 months ago and I doubt it does now. I waited for a long time. Staff called Dr. Riddle's office multiple times and no one answered. I left a message on his cell phone and he did not return that Patient is asymptomatic has noted above and I recommend she follow up with Dr. Lundberg to discuss further evaluation of this chronic chest pain Diagnosis Primary Impression: Chronic chest pain Additional Impression: Atypical chest pain Additional Instructions: The patient was advised to follow up with their physician and return if they worsen. Med/Other Pt SpecificInfo: Other Scripts No Active Prescriptions or Reported Meds Disposition: DISCHARGE HOME Condition: Stable Brandon Singh MD Jan 05, 2018 14:50
--- NOTE | 2018-01-06 22:18 | EKG ---
Date Performed: 01/05/2018 Time Performed: 12:01:34 PTAGE: 57 years EKG: Sinus rhythm LOW QRS VOLTAGE IN PRECORDIAL LEADS NONSPECIFIC ST & T-WAVE ABNORMALITY BORDERLINE ECG PREVIOUS TRACING : 10/16/2017 22.30 Since the prior tracing, there has been no significant wright DOCTOR: Riki Hassan Interpretating Date/Time 01/06/2018 22:16:37
== END 2018-01-05 16:32 | disposition home or self-care (01) ==
LOC: NEPC 11:45
DX: R07.89 Other chest pain (principal); G89.29 Other chronic pain; R94.31 Abnormal electrocardiogram [ECG] [EKG]; E78.00 Pure hypercholesterolemia, unspecified; Z88.8 Allergy status to other drugs, medicaments and biological substances
CPT/HCPCS: 71046; 80048; 82550; 83735; 84484; 85025; 85610; 85730; 93005; 99285